=== PATIENT | female | born 1980 | race American Indian/Alaskan Native ===

== ENCOUNTER 2017-02-01 11:14 | Inpatient (IN) | payer MEDICAID ==
--- NOTE | 2017-02-01 12:22 | History and Physical Report ---
History of Present Illness Date of examination: 02/01/17 Date of admission: 02/01/17 11:41 Chief complaint: My water broke History of present illness: 36 y/o G 3 P1, presents to labor and delivery with c/o of rupture of membranes at 9:30 this morning. care at [facility] since 11 weeks. Poor weight gain with the . Past History Past Medical History: no pertinent history Past Surgical History: D&C Family/Genetic History: none Social history: no significant social history - Obstetrical History Expected Date of Delivery: 02/14/17 Actual Gestation: 38 Week(s) 1 Day(s) : 3 Para: 1 Hx # Term Pregnancies: 1 Induced : 1 Number of Living Children: 1 Medications and Allergies Allergies Allergy/AdvReac Type Severity Reaction Status Date / Time No Known Allergies Allergy Verified 12/27/14 04:45 Home Medications Medication Instructions Recorded Confirmed Last Taken Type guaiFENesin [Mucinex] 12/27/14 12/27/14 12/26/14 History Acetaminophen [Acetaminophen ER 650 mg PO Q8HR PRN #30 tablet.er 10/18/16 Unknown Rx TAB] Review of Systems All systems: negative - Physical Exam Breasts: Positive: deferred Cardiovascular: Regular rate Lungs: Positive: Clear to auscultation Abdomen: Positive: soft Genitourinary (Female): Positive: normal external genitalia, normal perenium Vulva: both: normal Vagina: Positive: normal moisture Uterus: Positive: enlarged Deep Tendon Reflex Grade: Normal +2 - Obstetrical FHR: category 1 Uterine Contraction Monitor Mode: External Cervical Dilatation: 6 Cervical Effacement Percentage: 80 station: -1 Uterine Contraction Pattern: Regular Uterine Contraction Intensity: Moderate Results Result Diagrams: 02/01/17 14:37 All other labs normal. Assessment and Plan A: 38 + weeks with Rom P: start Pitocin augmentation Expect Epidural when desired
[2017-02-01] MEDS ORDERED: XYLOCAINE 2% INFILTRATI ONE (12:30)
[2017-02-01] MEDS ORDERED: ePHEDrine SULFATE IV PRN (12:30)
[2017-02-01] MEDS ORDERED: SUBLIMAZE IV PRN (12:30)
[2017-02-01] MEDS ORDERED: MINERAL OIL PO PRN (13:00)
[2017-02-01] MEDS ORDERED: PITOCin/NS 30 UNIT/500ML 30 UNITS/500 ML BAG IV SCH (13:00)
[2017-02-01] MEDS ORDERED: BRETHINE SUB-Q PRN (13:00)
[2017-02-01] MEDS ORDERED: PITOCin/NS 20 UNIT/1000ML DRIP 20 UNITS/1,000 ML BAG IV SCH (13:00)
[2017-02-01] MEDS ORDERED: BRETHINE IVP PRN (13:00)
[2017-02-01] MEDS: LACTATED RINGERS 1,000 ML IV SCH ×2 (14:10→19:40)
[2017-02-01 14:47] LABS: Hematocrit 31.5 % (30.3-42.9); Hemoglobin 10.2 gm/dl (10.1-14.3); Mean Corpuscular HGB Conc 33 % (30-34); Mean Corpuscular Hemoglobin 32 pg (28-32); Mean Corpuscular Volume 97 fl (79-97); Platelet Count 119 K/mm3 (140-440); Red Blood Count 3.24 M/mm3 (3.65-5.03); Red Cell Distribution Width 16.4 % (13.2-15.2); White Blood Count 8.2 K/mm3 (4.5-11.0)
[2017-02-01] MEDS ORDERED: NARCAN 2 MG/2 ML IV PRN (15:54)
--- NOTE | 2017-02-01 15:56 | Anesthesia Consultation ---
Anesthesia Consult and Med Hx Date of service: 02/01/17 - Airway Anesthetic Teeth Evaluation: Good ROM Head & Neck: Adequate Mental/Hyoid Distance: Adequate Mallampati Class: Class II Intubation Access Assessment: Probably Good - Pulmonary Exam CTA: Yes - Cardiac Exam Cardiac Exam: RRR - Pre-Operative Health Status ASA Pre-Surgery Classification: ASA2 Proposed Anesthetic Plan: Epidural, Spinal - Pulmonary Hx Asthma: No COPD: No Hx Pneumonia: No - Cardiovascular System Hx Hypertension: No - Central Nervous System Hx Seizures: No Hx Psychiatric Problems: No - Endocrine Hx Renal Disease: No Hx End Stage Renal Disease: No Hx Hypothyroidism: No Hx Hyperthyroidism: No - Hematic Hx Anemia: No Hx Sickle Cell Disease: No - Other Systems Hx Alcohol Use: No
[2017-02-01] MEDS ORDERED: fentaNYL-BUPIV 2 MCG/ML-0.125% 200 MCG/100 ML BAG EPIDURAL SCH (16:00)
[2017-02-01] MEDS ORDERED: LANSINOH TP PRN (17:50)
[2017-02-01] MEDS ORDERED: DERMOPLAST TP PRN (17:50)
[2017-02-01] MEDS ORDERED: BENADRYL PO PRN (17:50)
[2017-02-01] MEDS ORDERED: PHENERGAN PO PRN (17:50)
[2017-02-01] MEDS ORDERED: TYLENOL PO PRN (17:50)
[2017-02-01] MEDS ORDERED: TUCKS PAD TP PRN (17:50)
[2017-02-01] MEDS ORDERED: DULCOLAX PR PRN (17:50)
[2017-02-01] MEDS ORDERED: MILK OF MAGNESIA PO PRN (17:50)
--- NOTE | 2017-02-01 17:56 | Procedure Note ---
OB Delivery Note - Delivery Date of Delivery: 02/01/17 (1746) Surgeon: RACHELLE SILVA Estimated blood loss: other (350) - Vaginal Delivery presentation: vertex Delivery position: OA Intrapartum events: none Delivery induction: none Delivery augmentation: rupture of membranes, pitocin Delivery monitor: external FHT, external uterine Route of delivery: Delivery placenta: spontaneous Delivery cord: 3 umbilical vessels Episiotomy: none Delivery laceration: none Anesthesia: epidural Delivery comments: Baby barbra Longoria delivered on 02/01/2017 @ 1746 over an intact perineum. Baby responded well to drying and stimulation and was placed directly on mom's chest and abdomen. Placenta delivered luac. Cord was clamped and cut by sister of baby at 6 minutes of life. Cord blood was collected. Apgars 8/9. Upon examination, baby's left ear was found to be extremely small, low set with possible mandible involvement. NICU team called to evaluate the baby. Mom and baby doing well. Baby weighted 4lb 15oz - A at 1 minute: 8 (4lb 15oz) at 5 minutes: 9 Infant Gender: Female
[2017-02-01] MEDS ORDERED: SODIUM CHLORIDE FLUSH SYRINGE 10 ML IV NR (18:00)
[2017-02-01] MEDS ORDERED: MOTRIN PO SCH (18:00)
[2017-02-01] MEDS: NORCO 5/325 PO PRN (20:41)
[2017-02-02 06:21] LABS: Hematocrit 27.1 % (30.3-42.9); Hemoglobin 8.6 gm/dl (10.1-14.3)
[2017-02-02] MEDS: NORCO 5/325 PO PRN ×3 (07:31→21:24)
--- NOTE | 2017-02-02 18:21 | Progress Note ---
Assessment and Plan A: PPD #1- stable P: Baby in NICU, has heart abnormality and microtia Discharge home in am Subjective - Subjective Interval history: 36 y/o G 3 P1, presents to labor and delivery with c/o of rupture of membranes at 9:30 this morning. care at [facility] since 11 weeks. Poor weight gain with the . Patient reports: appetite normal : in NICU Objective - Vital Signs Latest vital signs: Vital Signs Temp Pulse Pulse Resp BP BP 02/02/17 04:25 98.6 F 82 22 120/76 02/02/17 00:10 98.6 F 80 16 122/72 02/01/17 21:00 98.6 F 71 22 119/80 02/01/17 19:22 75 125/78 02/01/17 19:06 68 122/69 02/01/17 18:51 76 122/75 02/01/17 18:36 80 129/71 02/01/17 18:21 86 132/71 Intake and Output 02/02/17 02/02/17 02/02/17 06:59 14:59 22:59 Intake Total 900 Output Total 1400 Balance -500 Intake: Oral 500 Intake, Free Water 400 Output: Urine 1400 Void 1400 Other: Total, Intake Amount 500 Total, Output Amount 800 # Voids Void 2 - Exam Breasts: Present: deferred Cardiovascular: Present: Regular rate Lungs: Present: Clear to auscultation Abdomen: Present: soft Vulva: both: normal Uterus: Present: fundal height below umbilicus Extremities: Present: normal Deep Tendon Reflex Grade: Normal +2 - Labs Labs: Abnormal lab results 02/02/17 Range/Units 06:00 Hgb 8.6 L (10.1-14.3) gm/dl Hct 27.1 L (30.3-42.9) %
--- NOTE | 2017-02-02 18:43 | Discharge Summary ---
Providers - Providers Date of Admission: 02/01/17 11:41 Date of discharge: 02/03/17 Attending physician: PAIGE HERNADEZ MD 02/02/17 14:07 Consult to Anesthesiology [CONS] Routine Consulting Provider: NATO BOSS Reason For Exam: H/A Primary care physician: PAIGE HERNADEZ MD Hospitalization Reason for admission: active labor Delivery: Episiotomy: none Laceration: none Other procedures: none complications: spinal headache Discharge diagnosis: IUP at term delivered baby: female Condition at discharge: Good Disposition: DISCHARGED TO HOME OR SELFCARE Plan - Provider Discharge Summary Additional instructions: [] Smoking cessation referral if applicable(refer to patient education folder for contact #) [] Refer to [facility] Booklet Call your doctor immediately for: * Fever > 100.5 * Heavy vaginal bleeding ( >1 pad per hour) * Severe persistent headache * Shortness of breath * Reddened, hot, painful area to leg or breast * Drainage or odor from incision. * Keep incision clean and dry at all times and follow doctor's instructions regarding bathing/showering - Follow up plan Follow up: [facility] [Provider Group] - 6 Weeks
--- NOTE | 2017-02-02 23:16 | Progress Note ---
Subjective Date of service: 02/02/17 Interval history: Patient had CSE placed on 02/01/17without incident. Shortly thereafter she developed a head ache of moderate intensity that has tended to come and go. There is a positional component to the headache. I saw the patient at 2200 and explained the blood patch procedure. Anesthesia will reevaluate in the am and perform a blood patch if headache is still present. Objective - Constitutional Vitals: Vital Signs - 12hr 02/02/17 02/02/17 15:30 21:31 Temperature 98.3 F 97.8 F Pulse Rate [ 74 93 H Left From Monitor] Respiratory 18 20 Rate Blood Pressure 111/67 125/74 [Left Arm] - Labs CBC & Chem 7: 02/02/17 06:00 Labs: Abnormal lab results 02/02/17 Range/Units 06:00 Hgb 8.6 L (10.1-14.3) gm/dl Hct 27.1 L (30.3-42.9) %
[2017-02-03] MEDS: NORCO 5/325 PO PRN ×2 (07:56→21:15)
--- NOTE | 2017-02-03 08:12 | Progress Note ---
Subjective Date of service: 02/03/17 Interval history: Patient continues to have positional headache this am. She desires to proceed with Epidural blood patch. After informed consent and time out, The patient wea seated and prepped. The epidural space was identified by PRIMO at L3-4 Using an 18 guage Fransisco needle. 0 cc of autologous blood was injected via epidural needle with minemal pressure sensation per patient. No adverse events were noted. A Chacon epidural kit was utilized with [id number] and expiration 02/14/18. The procedure time was Objective - Constitutional Vitals: Vital Signs - 12hr 02/02/17 02/03/17 02/03/17 21:31 01:47 05:49 Temperature 97.8 F 98.4 F 98.2 F Pulse Rate [ 93 H 76 62 Left From Monitor] Respiratory 20 20 20 Rate Blood Pressure 125/74 109/60 115/70 [Left Arm] - Labs CBC & Chem 7: 02/02/17 06:00
[2017-02-03] MEDS ORDERED: MORPHINE IV PRN (13:30)
--- NOTE | 2017-02-03 13:44 | Progress Note ---
Subjective Date of service: 02/03/17 Interval history: Patient is C/O post blood patch back spasm. No motor or sensory defecit noted. She does have a history of sciatica during her . Pain medication and a muscle relaxant have been ordered. Objective - Constitutional Vitals: Vital Signs - 12hr 02/03/17 02/03/17 02/03/17 01:47 05:49 08:55 Temperature 98.4 F 98.2 F 98.1 F Pulse Rate [ 76 62 84 Left From Monitor] Respiratory 20 20 20 Rate Blood Pressure 109/60 115/70 110/60 [Left Arm] - Labs CBC & Chem 7: 02/02/17 06:00
[2017-02-03] MEDS ORDERED: FLEXERIL PO SCH (14:00)
[2017-02-03 21:42] VITALS: BP 113/78
== END 2017-02-03 21:35 | disposition home or self-care (01) | DRG 775 ==
LOC: TRG 11:14 → LD 11:41 → OB 20:11
PROVIDERS: ADMIT Obstetrics & Gynecology; ATTEND Obstetrics & Gynecology
PROC: 10E0XZZ Delivery of Products of Conception, External Approach (ICD-10-PCS; principal; 2017-02-01)
PROC: 00HU33Z Insertion of Infusion Device into Spinal Canal, Percutaneous Approach (ICD-10-PCS; 2017-02-01)
PROC: 3E0R3CZ (ICD-10-PCS; 2017-02-01)
PROC: 3E0R3GC Introduction of Other Therapeutic Substance into Spinal Canal, Percutaneous Approach (ICD-10-PCS; 2017-02-03)
DX: O42.92 Full-term premature rupture of membranes, unspecified as to length of time between rupture and onset of labor (principal); O89.4 Spinal and epidural anesthesia-induced headache during the puerperium; O09.523 Supervision of elderly multigravida, third trimester; Z3A.38 38 weeks gestation of pregnancy; Z37.0 Single live birth
CPT/HCPCS: 36415; 85014; 85018; 85027; 86850; 86900; 86901; 99211; A6250; G0463; J2270; J2590; J3010; J7120

== ENCOUNTER 2017-12-07 11:39 | Emergency (ER) | payer MEDICAID ==
[2017-12-07 13:06] VITALS: BP 119/89
--- NOTE | 2017-12-07 16:33 | Emergency Department Report ---
- General Chief Complaint: Upper Respiratory Infection Stated Complaint: FLU SX Time Seen by Provider: 12/07/17 15:33 Source: patient Mode of arrival: Ambulatory Limitations: No Limitations - History of Present Illness Initial Comments: This is a 37-year-old female nontoxic, well nourished in appearance, no acute signs of distress presents to the ED with c/o of productive cough, nasal congestion and rhinorrhea times one week. Patient describes productive cough as yellow mucus production. Patient denies any recent travels, long car rides or recent hospital stays. Patient denies any calf pain or calf tenderness. Patient denies hemoptysis, fever, chills, nausea, vomiting, chest pain, shortness of breath, headache, stiff neck, numbness, tingling, or back pain. Patient denies any allergies or past medical history. MD Complaint: cough, rhinorrhea, nasal congestion -: week(s) (1) Severity: mild Severity scale (0 -10): 0 Consistency: constant Improves With: nothing Worsens With: nothing Associated Symptoms: rhinorrhea, nasal congestion, cough. denies: fever, chills , myalgias, diaphoresis, headache, sore throat, stiff neck, chest pain, shortness of breath, abdominal pain, nausea, vomiting, diarrhea, dysuria, rash, confusion, right sweats, weight loss, epistaxis, hoarseness, ear pain Treatments Prior to Arrival: none - Related Data Home Medications Medication Instructions Recorded Confirmed Last Taken guaiFENesin [Mucinex] 12/27/14 12/27/14 12/26/14 Previous Rx's Medication Instructions Recorded Last Taken Type Acetaminophen [Acetaminophen ER 650 mg PO Q8HR PRN #30 tablet.er 10/18/16 Unknown Rx TAB] Azithromycin [Zithromax Z-RAYSA] 250 mg PO DAILY #6 tablet 12/07/17 Unknown Rx Benzonatate [Tessalon Perle] 100 mg PO Q6H PRN #20 capsule 12/07/17 Unknown Rx Allergies Allergy/AdvReac Type Severity Reaction Status Date / Time No Known Allergies Allergy Verified 12/27/14 04:45 ED Review of Systems ROS: Stated complaint: FLU SX Other details as noted in HPI Constitutional: denies: chills, fever Eyes: denies: eye pain, eye discharge, vision change ENT: denies: ear pain, throat pain Respiratory: cough Cardiovascular: denies: chest pain, palpitations Endocrine: no symptoms reported Gastrointestinal: denies: abdominal pain, nausea, diarrhea Genitourinary: denies: urgency, dysuria, discharge Musculoskeletal: denies: back pain, joint swelling, arthralgia Skin: denies: rash, lesions Neurological: denies: headache, weakness, paresthesias Psychiatric: denies: anxiety, depression Hematological/Lymphatic: denies: easy bleeding, easy bruising ED Past Medical Hx - Past Medical History Previous Medical History?: Yes Hx Hypertension: No Hx Congestive Heart Failure: No Hx Diabetes: No Hx Deep Vein Thrombosis: No Hx Renal Disease: No Hx Sickle Cell Disease: No Hx Seizures: No Hx Asthma: No Hx COPD: No Hx HIV: No Additional medical history: Vaginal delivery x 2 - Surgical History Past Surgical History?: No - Social History Smoking Status: Current Every Day Smoker Substance Use Type: Alcohol, Non Opiate Pain, Other - Medications Home Medications: Home Medications Medication Instructions Recorded Confirmed Last Taken Type guaiFENesin [Mucinex] 12/27/14 12/27/14 12/26/14 History Acetaminophen [Acetaminophen ER 650 mg PO Q8HR PRN #30 tablet.er 10/18/16 Unknown Rx TAB] Azithromycin [Zithromax Z-RAYSA] 250 mg PO DAILY #6 tablet 12/07/17 Unknown Rx Benzonatate [Tessalon Perle] 100 mg PO Q6H PRN #20 capsule 12/07/17 Unknown Rx ED Physical Exam - General Limitations: No Limitations General appearance: alert, in no apparent distress - Head Head exam: Present: atraumatic, normocephalic, normal inspection - Eye Eye exam: Present: normal appearance, PERRL, EOMI. Absent: scleral icterus, conjunctival injection, nystagmus, periorbital swelling, periorbital tenderness Pupils: Present: normal accommodation - ENT ENT exam: Present: normal exam, normal orophraynx, mucous membranes moist, TM's normal bilaterally, normal external ear exam - Neck Neck exam: Present: normal inspection, full ROM. Absent: tenderness, meningismus, lymphadenopathy, thyromegaly - Respiratory Respiratory exam: Present: normal lung sounds bilaterally. Absent: respiratory distress, wheezes, rales, rhonchi, stridor, chest wall tenderness, accessory muscle use, decreased breath sounds, prolonged expiratory - Cardiovascular Cardiovascular Exam: Present: regular rate, normal rhythm, normal heart sounds. Absent: irregular rhythm, systolic murmur, diastolic murmur, rubs, gallop - GI/Abdominal GI/Abdominal exam: Present: soft, normal bowel sounds. Absent: distended, tenderness, guarding, rebound, rigid, diminished bowel sounds - Rectal Rectal exam: Present: deferred - Extremities Exam Extremities exam: Present: normal inspection, full ROM, normal capillary refill. Absent: tenderness, pedal edema, joint swelling, calf tenderness - Back Exam Back exam: Present: normal inspection, full ROM. Absent: tenderness, CVA tenderness (R), CVA tenderness (L), muscle spasm, paraspinal tenderness, vertebral tenderness, rash noted - Neurological Exam Neurological exam: Present: alert, oriented X3, CN II-XII intact, normal gait, reflexes normal - Psychiatric Psychiatric exam: Present: normal affect, normal mood - Skin Skin exam: Present: warm, dry, intact, normal color. Absent: rash ED Course Vital Signs 12/07/17 13:03 Temperature 97.9 F Pulse Rate 114 H Respiratory 16 Rate Blood Pressure 119/89 O2 Sat by Pulse 98 Oximetry - Reevaluation(s) Reevaluation #1: 12/07/17 16:34 Patient is speaking in full sentences with no signs of distress noted. ED Medical Decision Making - Medical Decision Making This is a 37-year-old female that presents with upper respiratory infection. Patient is stable and was examined by me. Chest xray has been obtained and dictated by radiologist with normal exam. Patient is notified of xray results with no questions noted by the patient. Influenza swab negative. Patient will be treated empiraclly with zpak at discharge due to symptoms worsening. Vital signs stable. Patient was instructed Follow-up with a primary care doctor in 3- 5 days or if symptoms worsen and continue return to emergency room as soon as possible. At time time of discharge, the patient does not seem toxic or ill in appearance. No acute signs of distress noted. Patient agrees to discharge treatment plan of care. No further questions noted by the patient. Critical care attestation.: If time is entered above; I have spent that time in minutes in the direct care of this critically ill patient, excluding procedure time. ED Disposition Clinical Impression: Upper respiratory infection Qualifiers: URI type: unspecified URI Qualified Code(s): J06.9 - Acute upper respiratory infection, unspecified Disposition: DC-01 TO HOME OR SELFCARE Is pt being admited?: No Does the pt Need Aspirin: No Condition: Stable Instructions: Upper Respiratory Infection (ED), Azithromycin (By mouth), Benzonatate (By mouth) Additional Instructions: Follow-up with a primary care doctor in 3-5 days or if symptoms worsen and continue return to emergency room as soon as possible. Prescriptions: Azithromycin [Zithromax Z-RAYAS] 250 mg PO DAILY #6 tablet Benzonatate [Tessalon Perle] 100 mg PO Q6H PRN #20 capsule PRN Reason: Cough Referrals: PRIMARY CARE, [Primary Care Provider] - 3-5 Days YANIQUE WILDER MD [Staff Physician] - 3-5 Days [facility] [Outside] - 3-5 Days [facility] [Outside] - 3-5 Days Forms: Work/School Release Form(ED)
--- NOTE | 2017-12-07 17:48 | XRay Report ---
FINAL REPORT EXAM: XR CHEST ROUTINE 2V HISTORY: cough TECHNIQUE: Two views of the chest Comparison: None FINDINGS: Normal heart size. Lungs are clear and well expanded without focal infiltrate or consolidation. The imaged axial skeleton is unremarkable. There is no effusion. IMPRESSION: No evidence for pneumonia or bronchitis.
== END 2017-12-07 18:28 | disposition home or self-care (01) ==
LOC: ED 11:39
DX: J06.9 Acute upper respiratory infection, unspecified (principal); F17.200 Nicotine dependence, unspecified, uncomplicated
CPT/HCPCS: 71046; 87400